=== PATIENT | female | born 2000 | race Asian ===

== ENCOUNTER 2022-10-20 22:29 | Inpatient (IN) | payer OTHER ==
[~2022-10-20] VITALS: Ht 152.4 cm; Wt 44.0 kg
[~2022-10-20 22:29] MED LIST: NALO4SPR BOTHNARES; ONDA4TAB12 PO
[2022-10-20 22:55] LABS: BASOPHILS # (AUTO) 0.1 X10'3 (0-0.2); BASOPHILS % (AUTO) 0.3 % (0-1); EOSINOPHILS # (AUTO) 0.1 X10'3 (0-0.9); EOSINOPHILS % (AUTO) 0.6 % (0-6); HEMATOCRIT 47.6 % (35.0-45.0); LYMPHOCYTES % (AUTO) 11.3 % (21-51); MEAN CORPUSCULAR HEMOGLOBIN 27.9 PG (27.0-31.0); MEAN CORPUSCULAR HGB CONC 33.5 g/dL (33.0-36.5); MEAN CORPUSCULAR VOLUME 83.2 FL (78-98); MEAN PLATELET VOLUME 7.8 FL (7.4-10.4); MONOCYTES # (AUTO) 1.2 X10'3 (0-0.9); MONOCYTES % (AUTO) 7.1 % (2-12); NEUTROPHILS # (AUTO) 14.2 X10'3 (1.8-7.7); NEUTROPHILS % (AUTO) 80.7 % (42-75); PLATELET COUNT 388 X10'3 (140-440); RED BLOOD COUNT 5.72 X10'6 (4.20-5.60); RED CELL DISTRIBUTION WIDTH 14.8 % (11.5-14.5); WHITE BLOOD COUNT 17.6 X10'3 (4.5-11.0)
[2022-10-20] MEDS ORDERED: normal saline 1000ml 1,000 ML IV ONE (23:05)
[2022-10-20 23:06] LABS: D-DIMER 0.27 MG/L FEU (0-0.50)
[2022-10-20] MEDS ORDERED: albuterol 2.5 MG/3 ML nebule NEB PRN (23:20)
[2022-10-20 23:38] LABS: ALANINE AMINOTRANSFERASE 38 U/L (12-78); ALBUMIN 4.2 G/DL (3.4-5.0); ALBUMIN/GLOBULIN RATIO 0.9 (1.1-1.5); ALKALINE PHOSPHATASE 78 IU/L (46-116); ANION GAP 14 (8-16); ASPARTATE AMINO TRANSFERASE 24 U/L (10-37); BLOOD UREA NITROGEN 10 MG/DL (7-18); BUN/CREATININE RATIO 14.3 (6.6-38.0); CALCIUM 9.6 MG/DL (8.5-10.1); CHLORIDE 99 MMOL/L (99-107); GLUCOSE 106 MG/DL (70-104); POTASSIUM 3.9 MMOL/L (3.5-5.1); SODIUM 136 MMOL/L (135-145); TOTAL CARBON DIOXIDE 22.7 MMOL/L (24-32); TOTAL PROTEIN 8.7 G/DL (6.4-8.2); eGFR > 90 ML/MIN
[2022-10-20 23:45] LABS: MAGNESIUM 2.1 MG/DL (1.5-2.4)
--- NOTE | 2022-10-21 02:05 | NUR ---
PT MOTHER PARDEEP, WILL PICK PT UP UPON DISCHARGE. PHONE NUMBER IS FOLLOWS: [phone].
[2022-10-21 02:24] LABS: BETA HCG,QUANTITATIVE < 1.0 mIU/ml
[2022-10-21] MEDS: normal saline 1000ml 1,000 ML IV SCH ×3 (03:11→10:36)
[2022-10-21] MEDS ORDERED: CefTRIAXone/D5W-Rocephin 1gm 50 ML IV ONE (04:50)
[2022-10-21] MEDS ORDERED: azithromycin/NS 500mg/250ml 250 ML IV ONE (04:50)
[2022-10-21] MEDS ORDERED: albuterol 2.5 MG/3 ML nebule NEB PRN (05:10)
[2022-10-21] MEDS ORDERED: mag hydrox/Alum hydrox/simeth 30ml oral suspension PO PRN (05:10)
[2022-10-21] MEDS ORDERED: normal saline 1000ml 1,000 ML IV SCH (05:10)
[2022-10-21] MEDS ORDERED: magnesium hydroxide 30ml (MOM) UD suspension PO PRN (05:10)
[2022-10-21] MEDS ORDERED: acetaminophen 325mg tablet PO PRN ×2 (05:10)
[2022-10-21] MEDS ORDERED: HYDROcodone/acetaminophen 10/325mg tab PO PRN (05:10)
[2022-10-21] MEDS ORDERED: ondansetron/PF 4mg/2ml inj IV PRN (05:10)
[2022-10-21] MEDS ORDERED: ipratropium/albuterol 3ml nebule NEB PRN (05:10)
[2022-10-21] MEDS ORDERED: potassium Cl 20 mEq SR tablet PO PRN ×2 (05:10)
[2022-10-21] MEDS ORDERED: potassium Cl 40MEQ/1/2NS 520ml 520 ML IV PRN (05:10)
[2022-10-21] MEDS ORDERED: magnesium 4gm in 100ml NS 100 ML IV PRN (05:10)
[2022-10-21] MEDS ORDERED: HYDROcodone/acetaminophen 5mg/325mg tablet PO PRN (05:10)
[2022-10-21 05:21] LABS: CLARITY,URINE CLEAR (Clear); COLOR,URINE YELLOW (Yellow); GLUCOSE, URINE NEGATIVE (Neg); KETONES,URINE >=80 mg/dl (Neg); LEUKOCYTE ESTERASE ,URINE NEGATIVE (Neg); NITRITES, URINE NEGATIVE (Neg); OCCULT BLOOD,URINE NEGATIVE (Neg); PROTEIN,URINE NEGATIVE (Neg); UROBILINOGEN,URINE 0.2 E.U/dL (0.2-1.0)
[2022-10-21 05:22] LABS: UA COLLECTION TYPE VOIDED
[2022-10-21 07:28] LABS: BASOPHILS % (AUTO) 0.2 % (0-1); EOSINOPHILS # (AUTO) 0.2 X10'3 (0-0.9); EOSINOPHILS % (AUTO) 1.4 % (0-6); HEMATOCRIT 39.2 % (35.0-45.0); LYMPHOCYTES # (AUTO) 1.3 X10'3 (1.1-4.8); LYMPHOCYTES % (AUTO) 9.7 % (21-51); MEAN CORPUSCULAR HEMOGLOBIN 27.7 PG (27.0-31.0); MEAN PLATELET VOLUME 7.9 FL (7.4-10.4); MONOCYTES # (AUTO) 1.2 X10'3 (0-0.9); MONOCYTES % (AUTO) 8.6 % (2-12); NEUTROPHILS % (AUTO) 80.1 % (42-75); PLATELET COUNT 275 X10'3 (140-440); RED BLOOD COUNT 4.67 X10'6 (4.20-5.60); RED CELL DISTRIBUTION WIDTH 14.3 % (11.5-14.5); WHITE BLOOD COUNT 13.8 X10'3 (4.5-11.0)
[2022-10-21 07:44] LABS: ALBUMIN 3.1 G/DL (3.4-5.0); ANION GAP 12 (8-16); BLOOD UREA NITROGEN 10 MG/DL (7-18); BUN/CREATININE RATIO 16.7 (6.6-38.0); CALCIUM 8.2 MG/DL (8.5-10.1); CHLORIDE 104 MMOL/L (99-107); GLUCOSE 91 MG/DL (70-104); POTASSIUM 3.4 MMOL/L (3.5-5.1); SODIUM 137 MMOL/L (135-145); TOTAL CARBON DIOXIDE 21.2 MMOL/L (24-32); eGFR > 90 ML/MIN
[2022-10-21] MEDS ORDERED: K and/or MAG REPLACEMENT MC SCH (08:00)
[2022-10-21] MEDS ORDERED: docusate sod 100mg capsule PO SCH (08:00)
[2022-10-21] MEDS ORDERED: budesonide 0.5mg/2ml UD nebule IH SCH (09:00)
[2022-10-21] MEDS ORDERED: NO HOME MEDS (11:02)
--- NOTE | 2022-10-21 12:45 | NUR ---
PT WAS FOUND SMOKING PERCOCET WITH BOYFRIEND IN THE ER BATHROOM. CALLED DR. SEPULVEDA, NEW ORDERS.,
[2022-10-21] MEDS ORDERED: LORazepam 2 mg/ml vial IV PRN (12:50)
[2022-10-21 13:38] VITALS: BP 122/77
[2022-10-21] MEDS ORDERED: LEVO750T68 PO (13:54)
[2022-10-21] MEDS ORDERED: ALBU8HFA PO (13:54)
[2022-10-22] MEDS ORDERED: CefTRIAXone/D5W-Rocephin 1gm 50 ML IV SCH (05:00)
[2022-10-22] MEDS ORDERED: azithromycin 250mg tablet PO SCH (08:00)
== END 2022-10-21 15:14 | disposition home or self-care (01) | DRG 871 ==
LOC: ER 22:30 → ED HOLD 10-21 05:14
PROVIDERS: ADMIT Family Medicine; ATTEND Family Medicine
DX: A41.9 Sepsis, unspecified organism (principal); J18.9 Pneumonia, unspecified organism; E87.6 Hypokalemia; F12.90 Cannabis use, unspecified, uncomplicated; J40 Bronchitis, not specified as acute or chronic; M41.9 Scoliosis, unspecified; F19.90 Other psychoactive substance use, unspecified, uncomplicated; F11.10 Opioid abuse, uncomplicated; Z20.822 Contact with and (suspected) exposure to COVID-19; F32.A Depression, unspecified; F41.9 Anxiety disorder, unspecified; Z80.8 Family history of malignant neoplasm of other organs or systems; Z79.899 Other long term (current) drug therapy
CPT/HCPCS: 36415; 71045; 80048; 80053; 81003; 83605; 83735; 83880; 84145; 84443; 84484; 84702; 85025; 85379; 87040; 87502; 87503; 87811; 93005; 93306; 94640; 94760; 96361; 96365; 99285; G0378; J0456; J0696; J7030

== ENCOUNTER 2023-03-14 14:42 | Inpatient (IN) | payer OTHER ==
[~2023-03-14] VITALS: Ht 152.4 cm; Wt 47.2 kg
--- NOTE | 2023-03-14 15:21 | NUR ---
PT PRESENTS TO THE ER FOR "DIFFICULTY BREATHING AND BODY ACHES". PT STATES SYMPTOMS HAVE BEEN GOING ON SINCE THIS MORNING. A AFEBRILE.
[2023-03-14] MEDS ORDERED: albuterol 2.5 MG/3 ML nebule NEB ONE (15:35)
[2023-03-14] MEDS ORDERED: methylPREDNISolone sod succ 125mg/2ml vial IV ONE (15:35)
[2023-03-14] MEDS ORDERED: normal saline 1000ML IV soln IVB ONE (15:35)
[2023-03-14 16:07] LABS: BASOPHILS % (AUTO) 0.2 % (0-1); EOSINOPHILS % (AUTO) 0.2 % (0-6); HEMATOCRIT 49.9 % (35.0-45.0); HEMOGLOBIN 16.3 g/dl (12.0-16.0); LYMPHOCYTES # (AUTO) 0.8 X10'3 (1.1-4.8); MEAN CORPUSCULAR HEMOGLOBIN 26.7 PG (27.0-31.0); MEAN CORPUSCULAR HGB CONC 32.7 g/dL (33.0-36.5); MEAN CORPUSCULAR VOLUME 81.4 FL (78-98); MEAN PLATELET VOLUME 8.7 FL (7.4-10.4); MONOCYTES # (AUTO) 0.5 X10'3 (0-0.9); MONOCYTES % (AUTO) 3.2 % (2-12); NEUTROPHILS # (AUTO) 13.8 X10'3 (1.8-7.7); NEUTROPHILS % (AUTO) 91.4 % (42-75); PLATELET COUNT 280 X10'3 (140-440); RED BLOOD COUNT 6.12 X10'6 (4.20-5.60); RED CELL DISTRIBUTION WIDTH 14.9 % (11.5-14.5); WHITE BLOOD COUNT 15.1 X10'3 (4.5-11.0)
[2023-03-14 16:15] LABS: ALANINE AMINOTRANSFERASE 19 U/L (12-78); ALBUMIN 4.7 G/DL (3.4-5.0); ALKALINE PHOSPHATASE 74 IU/L (46-116); ANION GAP 10 (8-16); ASPARTATE AMINO TRANSFERASE 25 U/L (10-37); BILIRUBIN,TOTAL 0.5 MG/DL (0.1-1.0); BLOOD UREA NITROGEN 6 MG/DL (7-18); BUN/CREATININE RATIO 8.6 (10.0-20.0); CALCIUM 9.5 MG/DL (8.5-10.1); CHLORIDE 102 MMOL/L (99-107); GLUCOSE 97 MG/DL (70-104); POTASSIUM 3.9 MMOL/L (3.5-5.1); SODIUM 139 MMOL/L (135-145); TOTAL CARBON DIOXIDE 27.2 MMOL/L (24-32); TOTAL PROTEIN 9.3 G/DL (6.4-8.2); eGFR > 90 ML/MIN
[2023-03-14] MEDS ORDERED: normal saline 1000ml 1,000 ML IV ONE (16:35)
[2023-03-14 17:02] LABS: URINE HCG NEGATIVE (NEG)
[2023-03-14 17:08] LABS: CLARITY,URINE SLIGHTLY CLOUDY (Clear); COLOR,URINE YELLOW (Yellow); GLUCOSE, URINE NEGATIVE (Neg); KETONES,URINE >=80 mg/dl (Neg); LEUKOCYTE ESTERASE ,URINE NEGATIVE (Neg); NITRITES, URINE NEGATIVE (Neg); OCCULT BLOOD,URINE LARGE (Neg); PROTEIN,URINE NEGATIVE (Neg); UROBILINOGEN,URINE 0.2 E.U/dL (0.2-1.0)
[2023-03-14 17:15] LABS: URINE AMPHETAMINE SCREEN NEGATIVE (Neg); URINE BARBITUATE SCREEN NEGATIVE (Neg); URINE BENZODIAZEPINES SCREEN NEGATIVE (Neg); URINE CANNABINOID SCREEN POSITIVE (Neg); URINE COCAINE SCREEN NEGATIVE (Neg); URINE METHADONE SCREEN NEGATIVE (Neg); URINE OPIATE SCREEN NEGATIVE (Neg); URINE PHENCYCLIDINE SCREEN NEGATIVE (Neg)
[2023-03-14 17:34] LABS: UA COLLECTION TYPE CLN CATCH MIDSTREAM
[2023-03-14 17:36] LABS: BACTERIA,URINE 1+ /HPF (Neg); MUCUS STRANDS FEW /LPF (Neg); SQUAMOUS EPITHELIAL CELL,UR MANY /LPF (FEW); TRANSITIONAL EPI CELLS,URINE FEW /HPF
--- NOTE | 2023-03-14 17:55 | NUR ---
HOSPITALIST AT BEDSIDE WITH PATIENT.
[2023-03-14] MEDS ORDERED: potassium Cl 40MEQ/1/2NS 520ml 520 ML IV PRN (18:00)
[2023-03-14] MEDS ORDERED: potassium Cl 20 mEq SR tablet PO PRN (18:00)
[2023-03-14] MEDS ORDERED: ondansetron/PF 4mg/2ml inj IV PRN (18:00)
[2023-03-14] MEDS ORDERED: acetaminophen 325mg tablet PO PRN ×2 (18:00)
[2023-03-14] MEDS ORDERED: magnesium 2GM in 50ml NS 50 ML IV PRN (18:00)
[2023-03-14] MEDS ORDERED: magnesium 4gm in 100ml NS 100 ML IV PRN (18:00)
[2023-03-14] MEDS ORDERED: magnesium Cl slow-release 64mg tablet PO PRN (18:00)
[2023-03-14] MEDS: methylPREDNISolone sod succ/PF 40mg inj. IV SCH (19:30)
[2023-03-14] MEDS: enoxaparin 40mg/0.4ml syringe SQ SCH (19:31)
[2023-03-14] MEDS: normal saline 1000ml 1,000 ML IV SCH (19:31)
[2023-03-14] MEDS: albuterol 2.5 MG/3 ML nebule NEB SCH (20:46)
[2023-03-14 21:00] VITALS: BP 112/68
[2023-03-14] MEDS ORDERED: temazepam 15mg capsule PO PRN (21:00)
--- NOTE | 2023-03-14 21:00 | NUR ---
Patient in room ORTHO 4024. I have received report from Maegan STONER and had the opportunity to ask questions and assume patient care.
--- NOTE | 2023-03-14 21:30 | NUR ---
While admitting PT they stated they took 1 suboxone tablet of there own prescription. I was not present to see this. Provider was notified
[2023-03-14] MEDS ORDERED: BUPR1FIL20 SL (23:16)
[2023-03-14] MEDS ORDERED: GABA600T13 PO (23:16)
[2023-03-14] MEDS ORDERED: QUET25TA36 PO (23:16)
[2023-03-14] MEDS ORDERED: QUET300T20 PO (23:16)
[2023-03-14] MEDS: CefTRIAXone 2gm/D5W 50ml BAG 50 ML IV SCH (23:21)
[2023-03-15] MEDS: albuterol 2.5 MG/3 ML nebule NEB SCH ×7 (00:04→23:48)
[2023-03-15 01:35] LABS: URINE AMPHETAMINE SCREEN NEGATIVE (Neg); URINE BARBITUATE SCREEN NEGATIVE (Neg); URINE BENZODIAZEPINES SCREEN NEGATIVE (Neg); URINE CANNABINOID SCREEN POSITIVE (Neg); URINE COCAINE SCREEN NEGATIVE (Neg); URINE METHADONE SCREEN NEGATIVE (Neg); URINE OPIATE SCREEN NEGATIVE (Neg); URINE PHENCYCLIDINE SCREEN NEGATIVE (Neg)
[2023-03-15] MEDS: QUEtiapine 25mg tablet PO PRN (02:15)
--- NOTE | 2023-03-15 05:57 | NUR ---
Problems reprioritized. Patient report given, questions answered & plan of care reviewed with Nessa TSONER.
[2023-03-15 06:00] VITALS: BP 116/65
--- NOTE | 2023-03-15 06:49 | NUR ---
Patient in room ORTHO 4024. I have received report from BRYCE STONER and had the opportunity to ask questions and assume patient care.
[2023-03-15] MEDS: methylPREDNISolone sod succ/PF 40mg inj. IV SCH ×2 (07:50→20:11)
[2023-03-15 07:56] LABS: BASOPHILS % (AUTO) 0.1 % (0-1); EOSINOPHILS % (AUTO) 0 % (0-6); HEMATOCRIT 40.5 % (35.0-45.0); HEMOGLOBIN 13.6 g/dl (12.0-16.0); LYMPHOCYTES % (AUTO) 10.9 % (21-51); MEAN CORPUSCULAR HEMOGLOBIN 27.1 PG (27.0-31.0); MEAN CORPUSCULAR HGB CONC 33.6 g/dL (33.0-36.5); MEAN CORPUSCULAR VOLUME 80.8 FL (78-98); MEAN PLATELET VOLUME 8.8 FL (7.4-10.4); MONOCYTES # (AUTO) 0.6 X10'3 (0-0.9); MONOCYTES % (AUTO) 6.2 % (2-12); NEUTROPHILS # (AUTO) 7.6 X10'3 (1.8-7.7); NEUTROPHILS % (AUTO) 82.8 % (42-75); PLATELET COUNT 232 X10'3 (140-440); RED BLOOD COUNT 5.02 X10'6 (4.20-5.60); RED CELL DISTRIBUTION WIDTH 14.7 % (11.5-14.5); WHITE BLOOD COUNT 9.2 X10'3 (4.5-11.0)
[2023-03-15 08:05] LABS: ALANINE AMINOTRANSFERASE 14 U/L (12-78); ALBUMIN 3.6 G/DL (3.4-5.0); ALBUMIN/GLOBULIN RATIO 0.9 (1.1-1.5); ALKALINE PHOSPHATASE 55 IU/L (46-116); ANION GAP 12 (8-16); ASPARTATE AMINO TRANSFERASE 22 U/L (10-37); BILIRUBIN,TOTAL 0.3 MG/DL (0.1-1.0); BLOOD UREA NITROGEN 9 MG/DL (7-18); BUN/CREATININE RATIO 18.8 (10.0-20.0); CALCIUM 8.7 MG/DL (8.5-10.1); CHLORIDE 105 MMOL/L (99-107); CREATININE 0.48 MG/DL (0.40-0.90); GLUCOSE 115 MG/DL (70-104); POTASSIUM 3.8 MMOL/L (3.5-5.1); SODIUM 139 MMOL/L (135-145); TOTAL CARBON DIOXIDE 21.8 MMOL/L (24-32); TOTAL PROTEIN 7.4 G/DL (6.4-8.2); eGFR > 90 ML/MIN
[2023-03-15] MEDS ORDERED: LORazepam 2 mg/ml vial IV PRN ×2 (08:10→12:00)
[2023-03-15] MEDS: LORazepam 2 mg/ml vial IV PRN ×5 (08:29→23:48)
--- NOTE | 2023-03-15 08:33 | NUR ---
PATIENT appears shaky and aching of "whole body ", reported also very anxious. Dr bonds paged. Order for ativan given. will continue to monitor patient closely
[2023-03-15 08:39] VITALS: BP 121/73
--- NOTE | 2023-03-15 12:16 | NUR ---
patient throwing up given zofran and ativan jeovanny continue to monitor
--- NOTE | 2023-03-15 12:52 | NUR ---
Malnutrition consult: Pt reports 2-13 lb wt loss with decreased appetite/PO intake per malnutrition risk screen with RN. Most recent scaled wt hx in EMR is 45.45 kg taken 10/07/22 with a chair scale, current chair scaled wt is 47.2 kg. No apparent wt loss. Pt initially on a regular diet though no documentation of PO intake and per EMR pt currently extremely anxious, shaking, and with emesis. Pt no longer with an active diet order. Pt with no documented significant decrease in muscle strength or edema. Pt currently lacks a minimum of two criteria for malnutrition. Will continue to follow and further monitor s/s of malnutrition. Addendum: 03/15/23 at [address] Amended: Links added.
[2023-03-15 13:13] VITALS: BP 120/79
--- NOTE | 2023-03-15 14:09 | NUR ---
Lab called to say patient has gram positive cocci in clusters from Aerobic bottle drawn March [address] bonds notified
[2023-03-15 16:35] VITALS: BP 104/62
[2023-03-15 18:00] VITALS: BP 111/70
--- NOTE | 2023-03-15 18:00 | NUR ---
Patient in room ORTHO 4010. I have received report from Erika STONER and had the opportunity to ask questions and assume patient care.
--- NOTE | 2023-03-15 18:39 | NUR ---
Meds addressed by Dr bonds. patient changed to room 4010, anxious and tearful. Report given to Mary Ann STONER
--- NOTE | 2023-03-15 20:00 | NUR ---
Pt discussed with me the plan of care. I explained that she is being treated for lung injury and withdrawal. I explained the different medications she is being given to treat those symptoms
[2023-03-15] MEDS: gabapentin 300mg capsule PO SCH (20:11)
[2023-03-15] MEDS: enoxaparin 40mg/0.4ml syringe SQ SCH (20:11)
[2023-03-15] MEDS ORDERED: quetiapine fumarate ER 300mg tablet PO SCH (21:00)
[2023-03-15] MEDS: CefTRIAXone 2gm/D5W 50ml BAG 50 ML IV SCH (21:07)
[2023-03-15 22:00] VITALS: BP 113/65
[2023-03-15] MEDS: normal saline 1000ml 1,000 ML IV SCH (23:48)
[2023-03-16] MEDS: albuterol 2.5 MG/3 ML nebule NEB SCH ×6 (03:21→23:40)
[2023-03-16] MEDS: LORazepam 2 mg/ml vial IV PRN ×5 (04:37→20:18)
[2023-03-16 06:00] VITALS: BP 106/70
[2023-03-16] MEDS: gabapentin 300mg capsule PO SCH ×3 (07:06→20:15)
[2023-03-16] MEDS: methylPREDNISolone sod succ/PF 40mg inj. IV SCH (07:06)
[2023-03-16] MEDS: buprenorphine/naloxone 8MG-2MG SUBlingual film SL SCH (07:06)
[2023-03-16 10:00] VITALS: BP 108/67
[2023-03-16 10:48] LABS: BASOPHILS % (AUTO) 0.1 % (0-1); EOSINOPHILS % (AUTO) 0 % (0-6); LYMPHOCYTES # (AUTO) 1.1 X10'3 (1.1-4.8); LYMPHOCYTES % (AUTO) 11.1 % (21-51); MEAN CORPUSCULAR HEMOGLOBIN 26.8 PG (27.0-31.0); MEAN CORPUSCULAR HGB CONC 33.3 g/dL (33.0-36.5); MEAN CORPUSCULAR VOLUME 80.5 FL (78-98); MEAN PLATELET VOLUME 8.5 FL (7.4-10.4); MONOCYTES # (AUTO) 0.2 X10'3 (0-0.9); MONOCYTES % (AUTO) 2.1 % (2-12); NEUTROPHILS # (AUTO) 8.4 X10'3 (1.8-7.7); NEUTROPHILS % (AUTO) 86.7 % (42-75); PLATELET COUNT 229 X10'3 (140-440); RED BLOOD COUNT 4.85 X10'6 (4.20-5.60); WHITE BLOOD COUNT 9.7 X10'3 (4.5-11.0)
[2023-03-16 11:11] LABS: ALANINE AMINOTRANSFERASE 16 U/L (12-78); ALBUMIN 3.5 G/DL (3.4-5.0); ALBUMIN/GLOBULIN RATIO 0.9 (1.1-1.5); ALKALINE PHOSPHATASE 53 IU/L (46-116); ANION GAP 10 (8-16); ASPARTATE AMINO TRANSFERASE 19 U/L (10-37); BILIRUBIN,TOTAL 0.3 MG/DL (0.1-1.0); BLOOD UREA NITROGEN 15 MG/DL (7-18); BUN/CREATININE RATIO 21.7 (10.0-20.0); CALCIUM 8.8 MG/DL (8.5-10.1); CHLORIDE 107 MMOL/L (99-107); CREATININE 0.69 MG/DL (0.40-0.90); GLUCOSE 121 MG/DL (70-104); POTASSIUM 4.2 MMOL/L (3.5-5.1); SODIUM 140 MMOL/L (135-145); TOTAL PROTEIN 7.3 G/DL (6.4-8.2); eGFR > 90 ML/MIN
--- NOTE | 2023-03-16 11:46 | NUR ---
Patient has been reassigned to Isabell STONER. Report given.
--- NOTE | 2023-03-16 11:48 | NUR ---
Patient in room ORTHO 4010. I have received report from [employer] and had the opportunity to ask questions and assume patient care.
[2023-03-16] MEDS ORDERED: hydrOXYzine 25 MG tablet PO PRN (14:50)
[2023-03-16] MEDS: hydrOXYzine 25 MG tablet PO PRN ×2 (15:28→21:11)
[2023-03-16] MEDS: QUEtiapine 25mg tablet PO PRN (15:28)
--- NOTE | 2023-03-16 16:29 | NUR ---
Pt has been very anxious and emotional today, pacing room. Ativan given multiple times but not much relief of anxiety. Dr. Covington ordered Hydroxyzine which was given around 1500 and seems to be working well for pt.
[2023-03-16 17:00] VITALS: BP 102/66
--- NOTE | 2023-03-16 19:00 | NUR ---
Patient in room ORTHO 4010. I have received report from GEORGIANA Whyte and had the opportunity to ask questions and assume patient care.
[2023-03-16] MEDS ORDERED: quetiapine fumarate ER 300mg tablet PO SCH (20:00)
[2023-03-16] MEDS: enoxaparin 40mg/0.4ml syringe SQ SCH (20:00)
[2023-03-16] MEDS: QUETIAPINE 150 MG TAB.SR.24H PO SCH (20:39)
[2023-03-16] MEDS: CefTRIAXone 2gm/D5W 50ml BAG 50 ML IV SCH (21:11)
[2023-03-16] MEDS ORDERED: VANCOmycin 1250MG/NS 250ml Bag 250 ML IV ONE (21:40)
[2023-03-16] MEDS ORDERED: LORazepam 2 mg/ml vial IV PRN (21:45)
[2023-03-16 22:00] VITALS: BP 95/52
[2023-03-16] MEDS ORDERED: albuterol 2.5 MG/3 ML nebule NEB PRN (23:55)
[2023-03-17 06:00] VITALS: BP 102/70
[2023-03-17 06:35] LABS: BASOPHILS % (AUTO) 0.3 % (0-1); EOSINOPHILS % (AUTO) 0.4 % (0-6); HEMATOCRIT 39.8 % (35.0-45.0); HEMOGLOBIN 13.2 g/dl (12.0-16.0); LYMPHOCYTES # (AUTO) 3.4 X10'3 (1.1-4.8); LYMPHOCYTES % (AUTO) 32.9 % (21-51); MEAN CORPUSCULAR HEMOGLOBIN 26.8 PG (27.0-31.0); MEAN CORPUSCULAR HGB CONC 33.3 g/dL (33.0-36.5); MEAN CORPUSCULAR VOLUME 80.4 FL (78-98); MEAN PLATELET VOLUME 8.4 FL (7.4-10.4); MONOCYTES # (AUTO) 0.7 X10'3 (0-0.9); MONOCYTES % (AUTO) 6.6 % (2-12); NEUTROPHILS # (AUTO) 6.3 X10'3 (1.8-7.7); NEUTROPHILS % (AUTO) 59.8 % (42-75); PLATELET COUNT 244 X10'3 (140-440); RED BLOOD COUNT 4.95 X10'6 (4.20-5.60); RED CELL DISTRIBUTION WIDTH 14.9 % (11.5-14.5); WHITE BLOOD COUNT 10.4 X10'3 (4.5-11.0)
--- NOTE | 2023-03-17 06:40 | NUR ---
Problems reprioritized. Patient report given, questions answered & plan of care reviewed with GEORGIANA Triana.
[2023-03-17 06:47] LABS: ALANINE AMINOTRANSFERASE 21 U/L (12-78); ALBUMIN 3.5 G/DL (3.4-5.0); ALKALINE PHOSPHATASE 48 IU/L (46-116); ANION GAP 10 (8-16); ASPARTATE AMINO TRANSFERASE 30 U/L (10-37); BILIRUBIN,TOTAL 0.3 MG/DL (0.1-1.0); BLOOD UREA NITROGEN 13 MG/DL (7-18); BUN/CREATININE RATIO 15.3 (10.0-20.0); CALCIUM 8.8 MG/DL (8.5-10.1); CHLORIDE 107 MMOL/L (99-107); CREATININE 0.85 MG/DL (0.40-0.90); GLUCOSE 98 MG/DL (70-104); POTASSIUM 3.3 MMOL/L (3.5-5.1); SODIUM 141 MMOL/L (135-145); TOTAL CARBON DIOXIDE 24.4 MMOL/L (24-32); TOTAL PROTEIN 7.1 G/DL (6.4-8.2); eGFR 84 ML/MIN
[2023-03-17] MEDS: albuterol 2.5 MG/3 ML nebule NEB SCH ×4 (07:47→20:12)
[2023-03-17] MEDS: potassium Cl 20 mEq SR tablet PO PRN ×2 (08:00→16:20)
[2023-03-17] MEDS: gabapentin 300mg capsule PO SCH ×2 (08:00→19:48)
[2023-03-17] MEDS: buprenorphine/naloxone 8MG-2MG SUBlingual film SL SCH (08:00)
[2023-03-17] MEDS: QUEtiapine 25mg tablet PO PRN (08:00)
[2023-03-17 10:00] VITALS: BP 99/66
[2023-03-17] MEDS: LORazepam 2 mg/ml vial IV PRN ×3 (12:05→22:05)
[2023-03-17] MEDS: vancomycin/NS 1 GM ADD-VANTAGE 250 ML IV SCH ×2 (12:05→22:05)
[2023-03-17] MEDS: ESCITALOPRAM OXALATE 5 MG TABLET PO SCH (12:25)
[2023-03-17] MEDS: hydrOXYzine 25 MG tablet PO PRN (16:20)
[2023-03-17] MEDS ORDERED: divalproex sodium 500mg tablet.DR PO SCH (17:30)
[2023-03-17] MEDS: divalproex 250mg tablet, delayed-release PO SCH (17:52)
[2023-03-17 18:00] VITALS: BP 113/79
--- NOTE | 2023-03-17 18:20 | NUR ---
Problems reprioritized. Patient report given, questions answered & plan of care reviewed with Marla STONER.
[2023-03-17] MEDS: enoxaparin 40mg/0.4ml syringe SQ SCH (19:56)
[2023-03-17] MEDS: CefTRIAXone 2gm/D5W 50ml BAG 50 ML IV SCH (21:21)
--- NOTE | 2023-03-17 21:26 | NUR ---
I ADMINISTERED ATIVAN AT 1945 AFTER WASTED PARTIAL DOSE WITH GEORGIANA HARGROVE BUT DIDNOT GET SAVED.
[2023-03-17 22:00] VITALS: BP 122/78
[2023-03-17] MEDS: QUETIAPINE 150 MG TAB.SR.24H PO SCH (22:05)
[2023-03-18] MEDS: LORazepam 2 mg/ml vial IV PRN ×3 (00:43→20:43)
[2023-03-18 06:00] VITALS: BP 102/72
[2023-03-18 06:11] LABS: BASOPHILS % (AUTO) 0.4 % (0-1); EOSINOPHILS # (AUTO) 0.3 X10'3 (0-0.9); EOSINOPHILS % (AUTO) 3.1 % (0-6); HEMATOCRIT 43.4 % (35.0-45.0); HEMOGLOBIN 14.4 g/dl (12.0-16.0); LYMPHOCYTES # (AUTO) 3.2 X10'3 (1.1-4.8); LYMPHOCYTES % (AUTO) 33.2 % (21-51); MEAN CORPUSCULAR HEMOGLOBIN 26.7 PG (27.0-31.0); MEAN CORPUSCULAR HGB CONC 33.2 g/dL (33.0-36.5); MEAN CORPUSCULAR VOLUME 80.4 FL (78-98); MEAN PLATELET VOLUME 8.5 FL (7.4-10.4); MONOCYTES # (AUTO) 0.7 X10'3 (0-0.9); MONOCYTES % (AUTO) 6.9 % (2-12); NEUTROPHILS # (AUTO) 5.4 X10'3 (1.8-7.7); NEUTROPHILS % (AUTO) 56.4 % (42-75); PLATELET COUNT 252 X10'3 (140-440); RED BLOOD COUNT 5.39 X10'6 (4.20-5.60); RED CELL DISTRIBUTION WIDTH 14.8 % (11.5-14.5); WHITE BLOOD COUNT 9.6 X10'3 (4.5-11.0)
[2023-03-18 06:23] LABS: ALANINE AMINOTRANSFERASE 37 U/L (12-78); ALBUMIN 3.6 G/DL (3.4-5.0); ALBUMIN/GLOBULIN RATIO 0.9 (1.1-1.5); ALKALINE PHOSPHATASE 54 IU/L (46-116); ANION GAP 10 (8-16); ASPARTATE AMINO TRANSFERASE 58 U/L (10-37); BILIRUBIN,TOTAL 0.3 MG/DL (0.1-1.0); BLOOD UREA NITROGEN 12 MG/DL (7-18); BUN/CREATININE RATIO 17.9 (10.0-20.0); CALCIUM 9.1 MG/DL (8.5-10.1); CHLORIDE 104 MMOL/L (99-107); CREATININE 0.67 MG/DL (0.40-0.90); GLUCOSE 83 MG/DL (70-104); SODIUM 139 MMOL/L (135-145); TOTAL CARBON DIOXIDE 25.1 MMOL/L (24-32); TOTAL PROTEIN 7.4 G/DL (6.4-8.2); eGFR > 90 ML/MIN
--- NOTE | 2023-03-18 06:30 | NUR ---
Patient in room ORTHO 4010. I have received report from GEORGIANA Gutiérrez and had the opportunity to ask questions and assume patient care.
[2023-03-18 06:31] LABS: POTASSIUM 4.4 MMOL/L (3.5-5.1)
[2023-03-18] MEDS: gabapentin 300mg capsule PO SCH ×2 (07:40→20:32)
[2023-03-18] MEDS: QUETIAPINE 150 MG TAB.SR.24H PO SCH ×2 (07:41→20:32)
[2023-03-18] MEDS: ESCITALOPRAM OXALATE 5 MG TABLET PO SCH (07:41)
[2023-03-18] MEDS: buprenorphine/naloxone 8MG-2MG SUBlingual film SL SCH ×2 (07:42→20:33)
[2023-03-18] MEDS: albuterol 2.5 MG/3 ML nebule NEB SCH ×4 (07:45→20:18)
[2023-03-18] MEDS: divalproex 250mg tablet, delayed-release PO SCH (08:10)
[2023-03-18] MEDS: hydrOXYzine 25 MG tablet PO PRN ×2 (08:10→14:59)
[2023-03-18] MEDS ORDERED: VANCOMYCIN LEVEL IV ONE (09:30)
--- NOTE | 2023-03-18 09:37 | NUR ---
Received order for consult. Met with patient in regards to substance use. Patient is sleepy and unable to carry conversation. I talked with her nurse. I will see patient after lunch.
[2023-03-18 10:00] VITALS: BP 114/68
[2023-03-18] MEDS: vancomycin/NS 1 GM ADD-VANTAGE 250 ML IV SCH (10:20)
--- NOTE | 2023-03-18 14:41 | NUR ---
Met with patient in regards to substance use and to see if patient was interested in resources for treatment options. Patient is interested in outpatient services. Patient just got out of a 3 month inpatient rehab. Patient states she was discharged from rehab with no follow up provider for medications and relapsed. Patient would like to stay on Suboxone. I will speak to MD about increasing her Suboxone and I will set her up with a MAT provider. I called Roselyn the Financial Services Auditor and asked if she can help with getting patient a primary doctor. I gave patient a list of outpatient services and my card to call me with any questions.
[2023-03-18] MEDS ORDERED: predniSONE 20 mg tablet PO ONE (15:10)
--- NOTE | 2023-03-18 15:26 | NUR ---
I spoke with Dr Werner in regards to Suboxone dose and to get recommended dose for patient. I let Dr Covington know the recommended dose. He will increase dosage.
--- NOTE | 2023-03-18 17:08 | NUR ---
Patient has requested that medical information not be released to her mother. If her mother calls she should be transferred to her room to speak with her directly.
[2023-03-18] MEDS: divalproex sod 125mg tablet.DR PO SCH (17:52)
[2023-03-18 18:00] VITALS: BP 107/66
--- NOTE | 2023-03-18 18:00 | NUR ---
I have reviewed and agree with interventions, assessments, and documentation by Dionicio Gates LVN.
--- NOTE | 2023-03-18 18:41 | NUR ---
Problems reprioritized. Patient report given, questions answered & plan of care reviewed with GEORGIANA Gutiérrez.
[2023-03-18] MEDS: enoxaparin 40mg/0.4ml syringe SQ SCH (20:00)
[2023-03-18 22:00] VITALS: BP 111/74
[2023-03-18] MEDS ORDERED: VANCOmycin 1250MG/NS 250ml Bag 250 ML IV SCH (22:00)
[2023-03-19] MEDS: hydrOXYzine 25 MG tablet PO PRN ×3 (00:40→19:10)
[2023-03-19 06:00] VITALS: BP 107/71
--- NOTE | 2023-03-19 06:15 | NUR ---
Patient in room ORTHO 4010. I have received report from GEORGIANA Gutiérrez and had the opportunity to ask questions and assume patient care.
--- NOTE | 2023-03-19 06:36 | NUR ---
Problems reprioritized. Patient report given, questions answered & plan of care reviewed with GEORGIANA GREY.
[2023-03-19] MEDS: QUETIAPINE 150 MG TAB.SR.24H PO SCH ×2 (07:28→19:09)
[2023-03-19] MEDS: predniSONE 20 mg tablet PO SCH (07:28)
[2023-03-19] MEDS: buprenorphine/naloxone 8MG-2MG SUBlingual film SL SCH ×2 (07:29→19:10)
[2023-03-19] MEDS: ESCITALOPRAM OXALATE 5 MG TABLET PO SCH (07:29)
[2023-03-19] MEDS: gabapentin 300mg capsule PO SCH ×2 (07:29→19:09)
[2023-03-19] MEDS: divalproex sod 125mg tablet.DR PO SCH ×2 (07:30→17:36)
[2023-03-19] MEDS: albuterol 2.5 MG/3 ML nebule NEB SCH ×4 (08:02→20:16)
[2023-03-19 09:56] LABS: BASOPHILS % (AUTO) 0.2 % (0-1); EOSINOPHILS % (AUTO) 0.6 % (0-6); HEMOGLOBIN 14.4 g/dl (12.0-16.0); LYMPHOCYTES # (AUTO) 1.8 X10'3 (1.1-4.8); LYMPHOCYTES % (AUTO) 21.6 % (21-51); MEAN CORPUSCULAR HEMOGLOBIN 26.6 PG (27.0-31.0); MEAN CORPUSCULAR HGB CONC 33.5 g/dL (33.0-36.5); MEAN CORPUSCULAR VOLUME 79.4 FL (78-98); MEAN PLATELET VOLUME 8.4 FL (7.4-10.4); MONOCYTES # (AUTO) 0.5 X10'3 (0-0.9); MONOCYTES % (AUTO) 5.8 % (2-12); NEUTROPHILS # (AUTO) 5.8 X10'3 (1.8-7.7); NEUTROPHILS % (AUTO) 71.8 % (42-75); PLATELET COUNT 272 X10'3 (140-440); RED BLOOD COUNT 5.41 X10'6 (4.20-5.60); RED CELL DISTRIBUTION WIDTH 14.8 % (11.5-14.5); WHITE BLOOD COUNT 8.1 X10'3 (4.5-11.0)
[2023-03-19 09:57] LABS: ALANINE AMINOTRANSFERASE 34 U/L (12-78); ALBUMIN 3.6 G/DL (3.4-5.0); ALBUMIN/GLOBULIN RATIO 0.9 (1.1-1.5); ALKALINE PHOSPHATASE 58 IU/L (46-116); ANION GAP 13 (8-16); ASPARTATE AMINO TRANSFERASE 31 U/L (10-37); BILIRUBIN,TOTAL 0.3 MG/DL (0.1-1.0); BLOOD UREA NITROGEN 14 MG/DL (7-18); BUN/CREATININE RATIO 18.4 (10.0-20.0); CALCIUM 8.9 MG/DL (8.5-10.1); CHLORIDE 102 MMOL/L (99-107); CREATININE 0.76 MG/DL (0.40-0.90); GLUCOSE 89 MG/DL (70-104); POTASSIUM 3.5 MMOL/L (3.5-5.1); SODIUM 140 MMOL/L (135-145); TOTAL CARBON DIOXIDE 25.5 MMOL/L (24-32); TOTAL PROTEIN 7.7 G/DL (6.4-8.2); eGFR > 90 ML/MIN
[2023-03-19 10:00] VITALS: BP 108/74
--- NOTE | 2023-03-19 11:56 | NUR ---
Initial: Pt admit DX bronchitis secondary to cannabis/fentanyl vaping, fentanyl withdrawal, anxiety/manic, and possible bipolar disorder per EMR. Pt refused first 4 meals w/ emesis noted initially though improving to ~47% avg regular diet past 3.5 days. IF current intake persists will be meeting estimated needs. LBM 03/18. Will monitor for further PO trends and nutrition intervention needs. Rec: 1. continue regular diet; encourage PO 2. monitor further PO trends for ONS needs 3. routine bowel care 4. weekly wt Addendum: 03/19/23 at [address] Amended: Links added.
[2023-03-19] MEDS ORDERED: amox tr/potassium clavulanate 875/125mg TAB PO ONE (15:20)
[2023-03-19] MEDS: amox tr/potassium clavulanate 875/125mg TAB PO SCH (17:36)
[2023-03-19 18:00] VITALS: BP 107/60
[2023-03-19] MEDS: enoxaparin 40mg/0.4ml syringe SQ SCH (19:12)
[2023-03-19 22:00] VITALS: BP 122/84
[2023-03-20 02:00] VITALS: BP 112/74
--- NOTE | 2023-03-20 02:15 | NUR ---
AGREE WITH DATAPOWER DEVELOPER PHYSICAL ASSESSMENT CHARTED.
[2023-03-20 06:00] VITALS: BP 92/57
--- NOTE | 2023-03-20 06:29 | NUR ---
Problems reprioritized. Patient report given, questions answered & plan of care reviewed with CARMINA Calzada.
[2023-03-20 06:55] LABS: ALANINE AMINOTRANSFERASE 34 U/L (12-78); ALBUMIN 3.8 G/DL (3.4-5.0); ALKALINE PHOSPHATASE 66 IU/L (46-116); ANION GAP 10 (8-16); ASPARTATE AMINO TRANSFERASE 22 U/L (10-37); BASOPHILS % (AUTO) 0.2 % (0-1); BILIRUBIN,TOTAL 0.3 MG/DL (0.1-1.0); BLOOD UREA NITROGEN 13 MG/DL (7-18); BUN/CREATININE RATIO 17.6 (10.0-20.0); CHLORIDE 103 MMOL/L (99-107); CREATININE 0.74 MG/DL (0.40-0.90); EOSINOPHILS # (AUTO) 0.1 X10'3 (0-0.9); EOSINOPHILS % (AUTO) 1.4 % (0-6); GLUCOSE 130 MG/DL (70-104); HEMATOCRIT 44.3 % (35.0-45.0); HEMOGLOBIN 14.5 g/dl (12.0-16.0); LYMPHOCYTES # (AUTO) 3.8 X10'3 (1.1-4.8); LYMPHOCYTES % (AUTO) 42.7 % (21-51); MEAN CORPUSCULAR HEMOGLOBIN 26.4 PG (27.0-31.0); MEAN CORPUSCULAR HGB CONC 32.8 g/dL (33.0-36.5); MEAN CORPUSCULAR VOLUME 80.5 FL (78-98); MEAN PLATELET VOLUME 8.2 FL (7.4-10.4); MONOCYTES # (AUTO) 0.5 X10'3 (0-0.9); MONOCYTES % (AUTO) 5.9 % (2-12); NEUTROPHILS # (AUTO) 4.5 X10'3 (1.8-7.7); NEUTROPHILS % (AUTO) 49.8 % (42-75); PLATELET COUNT 286 X10'3 (140-440); POTASSIUM 3.6 MMOL/L (3.5-5.1); RED CELL DISTRIBUTION WIDTH 14.9 % (11.5-14.5); SODIUM 139 MMOL/L (135-145); TOTAL CARBON DIOXIDE 26.2 MMOL/L (24-32); TOTAL PROTEIN 7.6 G/DL (6.4-8.2); eGFR > 90 ML/MIN
[2023-03-20] MEDS: QUETIAPINE 150 MG TAB.SR.24H PO SCH (07:16)
[2023-03-20] MEDS: predniSONE 20 mg tablet PO SCH (07:16)
[2023-03-20] MEDS: buprenorphine/naloxone 8MG-2MG SUBlingual film SL SCH (07:17)
[2023-03-20] MEDS: amox tr/potassium clavulanate 875/125mg TAB PO SCH (07:18)
[2023-03-20] MEDS: divalproex sod 125mg tablet.DR PO SCH (07:21)
[2023-03-20] MEDS: ESCITALOPRAM OXALATE 5 MG TABLET PO SCH (07:22)
[2023-03-20] MEDS: gabapentin 300mg capsule PO SCH (07:22)
[2023-03-20] MEDS: albuterol 2.5 MG/3 ML nebule NEB SCH ×2 (07:45→11:26)
--- NOTE | 2023-03-20 09:10 | NUR ---
Met with patient to help her get an appointment with [facility] to continue her MAT treatment. Patient completed enrollment stuff via email and zoom. I spoke to staff at [facility] and he said that scheduling team will reach out to patient in 2 or 3 days to schedule new patient appointment after verifying insurance. I let know. I also informed patient that she can come back to the ER to get her script for Suboxone if need be so she doesn't run out.
[2023-03-20] MEDS: hydrOXYzine 25 MG tablet PO PRN (09:22)
[2023-03-20] MEDS ORDERED: VANCOMYCIN LEVEL IV ONE (09:30)
[2023-03-20 10:00] VITALS: BP 119/85
[2023-03-20] MEDS ORDERED: QUET150T16 PO (12:31)
[2023-03-20] MEDS ORDERED: PRED20TA PO (12:31)
[2023-03-20] MEDS ORDERED: ESCI5TAB PO (12:31)
[2023-03-20] MEDS ORDERED: BUPR1FIL3 SL (12:31)
[2023-03-20] MEDS ORDERED: ALBU8HFA PO (12:31)
[2023-03-20] MEDS ORDERED: HYDR-3686 PO (12:31)
[2023-03-20] MEDS ORDERED: AMOX-580 PO (12:31)
[2023-03-20] MEDS ORDERED: DIVA125T2 PO (12:31)
[2023-03-20] MEDS ORDERED: GABA300C PO (12:31)
--- NOTE | 2023-03-20 13:00 | NUR ---
I have reviewed and agree with interventions, assessments, and documentation by Elsi Valdivia LVN.
--- NOTE | 2023-03-20 14:11 | NUR ---
Patient discharged home with personal items. PIV D/c'd Tip in tact. Provided contact numbers for follow up appointments. Pt alert and appropriate, feeling safe about discharge.
== END 2023-03-20 14:53 | disposition home or self-care (01) | DRG 206 ==
LOC: ER 14:42 → ED HOLD 18:05 → ORTHO 4S 21:07 → UNDODISIN 03-15 11:10 → ORTHO 4S 03-15 17:30
PROVIDERS: ADMIT Internal Medicine; ATTEND Family Medicine
DX: J68.0 Bronchitis and pneumonitis due to chemicals, gases, fumes and vapors (principal); R78.81 Bacteremia; F11.93 Opioid use, unspecified with withdrawal; Z20.822 Contact with and (suspected) exposure to COVID-19; G89.29 Other chronic pain; R06.03 Acute respiratory distress; U07.0 Vaping-related disorder; R21 Rash and other nonspecific skin eruption; E87.6 Hypokalemia; B95.7 Other staphylococcus as the cause of diseases classified elsewhere; F31.9 Bipolar disorder, unspecified; R45.1 Restlessness and agitation; F12.10 Cannabis abuse, uncomplicated; F17.290 Nicotine dependence, other tobacco product, uncomplicated; F41.9 Anxiety disorder, unspecified; F42.9 Obsessive-compulsive disorder, unspecified; Z80.8 Family history of malignant neoplasm of other organs or systems; Z79.899 Other long term (current) drug therapy; Z87.01 Personal history of pneumonia (recurrent); Z71.6 Tobacco abuse counseling; Z71.51 Drug abuse counseling and surveillance of drug abuser
CPT/HCPCS: 36415; 71045; 80053; 80202; 80305; 81001; 81025; 83605; 84443; 85025; 87040; 87077; 87081; 87186; 87502; 87503; 87811; 94640; 94760; 97116; 97161; 97530; 99285; A4615; A6258; G0378; J0696; J1650; J2060; J2405; J2920; J3370; J7030; J7512; Q0177

== ENCOUNTER 2023-04-26 19:29 | Emergency (ER) | payer OTHER ==
[~2023-04-26] VITALS: Ht 152.4 cm; Wt 43.2 kg
[~2023-04-26 19:29] MED LIST changes: +AMOX-580 PO; +BUPR1FIL3 SL; +DIVA125T2 PO; +ESCI5TAB PO; +GABA300C PO; +HYDR-3686 PO; -NALO4SPR BOTHNARES; -ONDA4TAB12 PO; +PRED20TA PO; +QUET150T16 PO
--- NOTE | 2023-04-26 21:01 | NUR ---
Patient states that she has been taking suboxone tid for the past 4 months. Her last dose was 3 days ago. Pt states that she has been nauseated without epsiodes of vomiting. Pt is currently eating sushi.
[2023-04-26 21:32] VITALS: BP 99/54
[2023-04-26 22:00] LABS: CLARITY,URINE SLIGHTLY CLOUDY (Clear); COLOR,URINE YELLOW (Yellow); GLUCOSE, URINE 250 mg/dl (Neg); KETONES,URINE TRACE mg/dl (Neg); LEUKOCYTE ESTERASE ,URINE NEGATIVE (Neg); NITRITES, URINE NEGATIVE (Neg); OCCULT BLOOD,URINE NEGATIVE (Neg); PROTEIN,URINE TRACE mg/dl (Neg); UROBILINOGEN,URINE 0.2 E.U/dL (0.2-1.0)
[2023-04-26 22:03] LABS: URINE HCG NEGATIVE (NEG)
[2023-04-26 22:10] LABS: UA COLLECTION TYPE CLN CATCH MIDSTREAM
[2023-04-26 22:24] LABS: BACTERIA,URINE FEW /HPF (Neg); MUCUS STRANDS MANY /LPF (Neg); RBC,URINE NONE SEEN /HPF (0-2); SQUAMOUS EPITHELIAL CELL,UR FEW /LPF (FEW); WBC,URINE 0-4 /HPF (0-4)
[2023-04-26] MEDS ORDERED: ONDA4TAB12 PO (22:28)
[2023-04-26] MEDS ORDERED: buprenorphine/naloxone 8MG-2MG SUBlingual film SL SCH (22:30)
[2023-04-26] MEDS ORDERED: BUPR1FIL3 SL ×2 (22:34→22:35)
== END 2023-04-26 22:40 | disposition home or self-care (01) ==
LOC: ER 19:30
DX: B34.9 Viral infection, unspecified (principal); F11.10 Opioid abuse, uncomplicated
CPT/HCPCS: 81001; 81025; 82948; 99283